=== PATIENT | male | born 1995 ===

== ENCOUNTER 2024-08-25 06:41 | Day surgery (SDC) | payer OTHER, SELFPAY ==
[2024-08-25] VITALS (7 sets, daily range): BP systolic 89–119; BP diastolic 54–76; BMI 29.1
[2024-08-25] MEDS: Pyridium 200 MG PO (15:22)
== END 2024-08-25 16:15 | disposition home or self-care (01) ==
LOC: SDS 06:41
PROVIDERS: ATTENDING PHYSICIAN Surgery; FAMILY PHYSICIAN Family Medicine
DX: R39.12 Poor urinary stream (principal); R39.198 Other difficulties with micturition; R39.16 Straining to void
CPT/HCPCS: 52351